=== PATIENT | male | born 1980 | race Native Hawaiian/Other Pacific Islander ===

== ENCOUNTER 2016-10-18 13:53 | Emergency (ER) | payer OTHER ==
[2016-10-18 14:12] VITALS: BP 169/103
[2016-10-18] MEDS ORDERED: Bacitracin Oint 1 GM U/D Packet TOP ONE (14:17)
--- NOTE | 2016-10-18 15:12 | EDM.PDOC ---
ED HPI Skin/Rash - General Chief Complaint: Laceration Stated Complaint: L PINKY LACERATION Time Seen by Provider: 10/18/16 14:10 Source: Reports: Patient History Limitations: Reports: No limitations - History of Present Illness INITIAL COMMENTS - FREE TEXT/NARRATIVE: Pt arrived with a 1/2 inch laceration on the dorsal aspect of the lwft small finger. He cut it on a coffee cup. He has normal sensation and normal motion. Timing: Reports: still present Location, Skin: Reports: upper extremity, left Known Identified Source: yes Place: other (t was working at the [employer].) - Related Data Allergies Allergy/AdvReac Type Severity Reaction Status Date / Time erythromycin base Allergy Vomiting Verified 10/18/16 14:20 Home Meds: Ambulatory Orders Medication Instructions Recorded Confirmed NK [No Known Home Meds] 10/18/16 10/18/16 Past Medical History - Infectious Disease History Infectious Disease History: Reports: Chicken pox Social & Family History - Tobacco Use Smoking Status *Q: Former Smoker Years of Tobacco use: 16 Packs/Tins Daily: 0.2 Used Tobacco, but Quit: Yes Month Tobacco Last Used: November Second Hand Smoke Exposure: No - Caffeine Use Caffeine Use: Reports: Coffee, Energy drinks, Soda - Alcohol Use Days Per Week of Alcohol Use: 2 Number of Drinks Per Day: 4 Total Drinks Per Week: 8 - Recreational Drug Use Recreational Drug Use: No ED ROS GENERAL - Review of Systems Review Of Systems: See Below Constitutional: Reports: no symptoms HEENT: Reports: No symptoms Respiratory: Reports: No Symptoms Cardiovascular: Reports: No symptoms Endocrine: Reports: no symptoms GI/Abdominal: Reports: No symptoms : Reports: no symptoms Musculoskeletal: Reports: other ( laceration of left small finger, superficial. ) Neurological: Reports: No Symptoms ED EXAM, SKIN/RASH Exam: See Below Text/Narrative:: Pt has a superficial 1/2 inch laceration of the left small finger. Exam Limited By: No limitations General Appearance: alert Extremities: other ( Pt has a 1/2 inch superficial laceration deep to the subq on the knuckle of the left small finger. ) Course - Vital Signs Last Recorded V/S: Last Vital Signs Temp 36.0 C 10/18/16 14:26 Pulse 53 L 10/18/16 14:26 Resp 14 10/18/16 14:26 BP 169/103 H 10/18/16 14:26 Pulse Ox 97 10/18/16 14:26 - Orders/Labs/Meds Meds: Medications Discontinued Medications Generic Name Dose Route Start Last Admin Trade Name Jareth PRN Reason Stop Dose Admin Bacitracin 1 dose 10/18/16 14:17 10/18/16 14:38 Bacitracin Oint 1 Gm TOP 10/18/16 14:18 1 dose ONETIME ONE Administration Lidocaine HCl 5 ml 10/18/16 14:17 10/18/16 14:38 Xylocaine-Mpf 1% INJECT 10/18/16 14:18 5 ml ONETIME ONE Administration - Re-Assessments/Exams Free Text/Narrative Re-Assessment/Exam: 10/18/16 15:16 Pt is current with tetanus and he has normal motion. The area was cleansed well and infiltrated with lidocaine. The wound was closed with 5-0 prolene. 10/18/16 15:17 It was dressed with bacatracin Departure - Departure Time of Disposition: 15:18 Disposition: Home, Self-Care 01 Condition: fair Clinical Impression: Laceration Forms: ED Department Discharge Care Plan Goals: keep dry, no further ointments, sr in 7-8 days. use splint to protect finger.
== END 2016-10-18 15:30 | disposition home or self-care (01) ==
LOC: JP.ED 13:53
DX: S61.217A Laceration without foreign body of left little finger without damage to nail, initial encounter (principal); Z87.891 Personal history of nicotine dependence; W26.8XXA Contact with other sharp object(s), not elsewhere classified, initial encounter
CPT/HCPCS: 12001; 99282-25; 99283-25

== ENCOUNTER 2016-10-27 19:17 | Emergency (ER) | payer OTHER ==
[2016-10-27 19:31] VITALS: BP 155/102
--- NOTE | 2016-10-27 19:39 | EDM.PDOC ---
ED HPI Skin/Rash - General Chief Complaint: Skin Complaint Stated Complaint: REMOVE STITCHES Time Seen by Provider: 10/27/16 19:30 Source: Reports: Patient History Limitations: Reports: No limitations - History of Present Illness INITIAL COMMENTS - FREE TEXT/NARRATIVE: Pt sustained laceration which was repaired by Dr. Bassett on 10/18/16 and requesting removed tonight. Nursing staff informed provider pt had a laceration on the right forearm which occurred today at approx 4pm. No other concerns, just wondered if needed sutures. Is superficial, bleeding controlled and no other concerns. States up to date on tetanus vaccine, verified on 10/18/16. 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) - Related Data Allergies Allergy/AdvReac Type Severity Reaction Status Date / Time erythromycin base Allergy Vomiting Verified 10/27/16 19:29 Home Meds: Ambulatory Orders Medication Instructions Recorded Confirmed NK [No Known Home Meds] 10/18/16 10/27/16 Past Medical History - Past Health History Medical/Surgical History: Denies Medical/Surgical History Oncologic (Cancer) History: Reports: None - Infectious Disease History Infectious Disease History: Reports: Chicken pox Social & Family History - Tobacco Use Smoking Status *Q: Never Smoker Years of Tobacco use: 16 Packs/Tins Daily: 0.2 Used Tobacco, but Quit: Yes Month Tobacco Last Used: November Second Hand Smoke Exposure: No - Caffeine Use Caffeine Use: Reports: Coffee, Soda - Alcohol Use Days Per Week of Alcohol Use: 2 Number of Drinks Per Day: 4 Total Drinks Per Week: 8 - Recreational Drug Use Recreational Drug Use: No ED ROS GENERAL - Review of Systems Review Of Systems: ROS reveals no pertinent complaints other than HPI. ED EXAM, SKIN/RASH Exam: See Below Exam Limited By: No limitations General Appearance: alert, no apparent distress Extremities: normal range of motion, other (Approx 2cm superficial laceration of the right forearm without wound gaping, bleeding or other concerns. Intact with paper towel and tape. Left 5th finger with laceration healed with some non- viable tissue at wound borders. No evidence of infection.) Neurological: alert, oriented, normal cognition, normal gait Psychiatric: normal affect, normal mood Skin: Warm, Dry, Intact Course - Vital Signs Last Recorded V/S: Last Vital Signs Temp 36.2 C 10/27/16 19:30 Pulse 83 10/27/16 19:30 Resp 15 10/27/16 19:30 BP 155/102 H 10/27/16 19:30 Pulse Ox 96 10/27/16 19:30 Departure - Departure Time of Disposition: 19:37 Disposition: Home, Self-Care 01 Condition: good Clinical Impression: Superficial laceration, Visit for suture removal, Elevated blood pressure reading Instructions: Wound Infection, [id number] Referrals: Joshua Ross PA [Primary Care Provider] - Forms: ED Department Discharge Additional Instructions: 1. Keep steri strips clean, dry and in place. 2. Monitor for infection signs-redness, warmth or drainage. 3. Recheck with PCP as needed. Your blood pressure was elevated this evening-150 /102. Recheck in 1 week. If remains above 140/80 followup with your PCP. - Problem List & Annotations (1) Visit for suture removal SNOMED Code(s): 639514365, 499748877, 249609367 Code(s): Z48.02 - ENCOUNTER FOR REMOVAL OF SUTURES Status: Acute Priority : Low Current Visit: Yes (2) Superficial laceration SNOMED Code(s): 704560935 Code(s): T14.8 - OTHER INJURY OF UNSPECIFIED BODY REGION Status: Acute Priority: Low Current Visit: Yes (3) Elevated blood pressure reading SNOMED Code(s): 12009491 Code(s): R03.0 - ELEVATED BLOOD-PRESSURE READING, W/O DIAGNOSIS OF HTN Status: Acute Priority: Medium Current Visit: Yes - Problem List Review Problem List Initiated/Reviewed/Updated: Yes
== END 2016-10-27 19:46 | disposition home or self-care (01) ==
LOC: JP.ED 19:17
DX: S51.811A Laceration without foreign body of right forearm, initial encounter (principal); Z48.00 Encounter for change or removal of nonsurgical wound dressing; R03.0 Elevated blood-pressure reading, without diagnosis of hypertension; X58.XXXD Exposure to other specified factors, subsequent encounter; F17.210 Nicotine dependence, cigarettes, uncomplicated; Z88.1 Allergy status to other antibiotic agents
CPT/HCPCS: 99282